=== PATIENT | male | born 1945 | race Caucasian/White ===

== ENCOUNTER 2022-04-06 15:33 | Emergency (ER) | payer BC, MEDICARE ==
[~2022-04-06] VITALS: Ht 177.8 cm; Wt 88.5 kg
--- NOTE | 2022-04-06 16:00 | NUR ---
BIB W/ C/O FACIAL BRUISING AND HEADACHE RATED 3/10 ON PS. S/P FALL FROM BED X4DAYS, PT STATES HE IS ON BLOOD THINNER MEDICATION. TO ER BED 1.
--- NOTE | 2022-04-06 16:04 | NUR ---
DR SALINAS AT BEDSIDE W/ PT.
[2022-04-06 18:16] VITALS: BP 136/75
--- NOTE | 2022-04-06 18:28 | NUR ---
Patient discharged to home in stable condition. Written and verbal after care instructions given. Patient verbalizes understanding of instruction.
== END 2022-04-06 18:28 | disposition home or self-care (01) ==
LOC: ER 15:35
DX: S02.2XXA Fracture of nasal bones, initial encounter for closed fracture (principal); S02.31XA Fracture of orbital floor, right side, initial encounter for closed fracture; S00.83XA Contusion of other part of head, initial encounter; I48.91 Unspecified atrial fibrillation; I10 Essential (primary) hypertension; W06.XXXA Fall from bed, initial encounter; Y93.89 Activity, other specified; Y92.89 Other specified places as the place of occurrence of the external cause; Y99.8 Other external cause status
CPT/HCPCS: 70450-TC; 70486-TC